=== PATIENT | female | born 1955 | race Caucasian/White ===

== ENCOUNTER → 2020-03-24 | Outpatient (CLI) | payer BC ==
--- NOTE | 2020-03-24 20:26 | XCELERA REPORT ---
[address] [address] Transthoracic Echocardiogram Report Name: JUAN CARLOS GÓMEZ Age: 64 yrs Gender: Female : 1955 Patient Status: Outpatient Patient Location: Study Date: 03/24/2020 01:14 PM Height: 64 in Weight: 233 lb BSA: 2.1 m2 Reason For Study: MV INSUFFICIECY Ordering Physician: MANISH ORTEGA Performed By: Forrest Morton Interpretation Summary TECHNICALLY POOR STUDY. No biplane LVEF, aortic root measurement wrong, poor AV visualization, No WEI calculated. No TAPSE done. Findings. Small posterior and apical pericardial effusion or fat pad. Aortic root is calcified, poorly measured. Aortic valve is poorly imaged, probably tissue prosthesis, peak velocity 1.26m/s.PPG6mm Hg, no AR seen. Mild mitral annular calcification, No MVP, no MS, mild MR with no LA enlargement (visual). Mild concentric LVH with normal LVEF 65%,and LVDD by medial E/E', and m mode showing B notch suggesting increased LVEDP. Segmental regional wall motion abnormality consist of IVS hypokinesis and conduction delay. No LV enlargement. RV appears normal size for RA and RV. Probably no RVSD. Mild TR with RVSP 36mm Hg indicationg mild pulm hypertension. No MI seen. IVC normal . Summary ; AV poorly imaged, AV prosthesis not well imaged PPG as above, no perivalvular leak. Mild MR wit no MVP, or MS, and no LA enlargement. Mild conc. LVH with LVDD, but LVEF 65%. Mild pulm hypertension RVSP 36mm Hg. MMode/2D Measurements & Calculations RVDd: 2.9 cm LVIDd: 4.3 cm FS: 31.7 % Ao root diam: 2.8 cm IVSd: 1.3 cm LVIDs: 2.9 cm EDV(Teich): 83.5 ml LVPWd: 1.1 cm ESV(Teich): 33.4 ml Ao root area: 6.1 cm2 LA dimension: 3.8 cm EF(Teich): 60.0 % Doppler Measurements & Calculations MV E max gladys: MV P1/2t max gladys: Ao V2 max: LV V1 max P.1 cm/sec 112.0 cm/sec 125.4 cm/sec 5.0 mmHg MV A max gladys: MV P1/2t: 72.8 msec Ao max P.3 mmHgLV V1 max: 91.8 cm/sec MVA(P1/2t): 3.0 cm2 111.6 cm/sec MV E/A: 1.2 MV dec slope: LV dP/dt: 649.0 mmHg/s 450.3 cm/sec2 MV dec time: 0.23 sec PA V2 max: TR max gladys: MV P1/2t-pr_phl: 101.2 cm/sec 304.1 cm/sec 72.8 msec PA max P.1 mmHgTR max P.0 mmHg I WMSI = 1.31 % Normal = 69 Segments Size X - Cannot 2 - 4 - 1-2 small Interpret 1 - Normal Hypokinetic 3 - AkineticDyskinetic 3-5 moderate 5 - 6-14 large Aneurysmal 15-16 diffuse : MANISH ORTEGA Andre
== END ==
LOC: SP 12:41
PROVIDERS: ATTEND Thoracic Surgery (Cardiothoracic Vascular Surgery)
DX: I34.0 Nonrheumatic mitral (valve) insufficiency (principal); Z95.2 Presence of prosthetic heart valve
CPT/HCPCS: 93306

== ENCOUNTER → 2020-08-31 | Outpatient (CLI) | payer BC ==
--- NOTE | 2020-08-31 13:43 | WOMENS IMAGING REPORT ---
EXAM DESCRIPTION: BILAT SCREENING MAMMO W/CAD IMAGES COMPLETED DATE/TIME: 08/31/2020 12:46 pm REASON FOR STUDY: Z12.31 ENCNTR SCREEN MAMMOGRAM FOR MALIGNANT NEOPLASM OF BREAST Z12.31 ENCNTR SCR EEN MAMMOGRAM FOR MALIGNANT NEOPLASM OF [place] COMPARISON: None. EXAM PARAMETERS: Standard craniocaudal and mediolateral oblique views of each breast recorded using digital acquisition. Read with the assistance of CAD. .[facility] - Accurence Case Reviewer Version 9.2 LIMITATIONS: None. FINDINGS: No suspicious masses, suspicious calcifications or architectural distortion. No areas of c oncern. IMPRESSION: NEGATIVE MAMMOGRAM. BIRADS 1 BREAST DENSITY: a. The breasts are almost entirely fatty. BIRAD: ASSESSMENT: 1 NEGATIVE RECOMMENDATION: ROUTINE SCREENING Please continue yearly bilateral screening mammography/tomosynthesis in August 2021 COMMENT: The patient has been notified of the results by letter per [place] requirements. Additional no tification policies are in place for contacting patient with suspicious or incomplete findings. Quality ID #[id number]: [employer] recommends an annual screening mammogram for women aged 40 years or over. This facility utilizes a reminder system to ensure that all patients receive reminder letters, and/or direct phone calls for appointments. This includes reminders for routine scr eening mammograms, diagnostic mammograms, or other Breast Imaging Interventions when appropriate. Th is patient will be placed in the appropriate reminder system. TECHNICAL DOCUMENTATION: FINDING NUMBER: (1) ASSESSMENT: (1) JOB ID: [id number] 2010 [employer]- All Rights Reserved Reading location - IP/workstation name: [email or web address]
== END ==
LOC: WI 11:02
PROVIDERS: ATTEND Internal Medicine
DX: Z12.31 Encounter for screening mammogram for malignant neoplasm of breast (principal)
CPT/HCPCS: 77067